=== PATIENT | female | born 1945 | race Caucasian/White ===

== ENCOUNTER 2024-09-04 11:10 | Emergency (ER) | payer MEDICARE, OTHER ==
[~2024-09-04] VITALS: Ht 170.2 cm; Wt 96.2 kg
[~2024-09-04 11:10] MED LIST: ASPI-12 PO; CELE-193 PO; METF-900 PO; SYN0.088T PO
[2024-09-04 11:19] VITALS: BP 178/77; PULSE 77; RESP 18; O2SAT 99
[2024-09-04] MEDS: LIDOcaine 1% W/epiNEPHrine 1:100,000 20ml vial SQ ONE (12:29)
[2024-09-04] MEDS ORDERED: CEPH-585 PO (13:51)
[2024-09-04] MEDS: TETanus/Pertussis (Acell)/Diphther VAC/PF (Tdap-Adult) 0.5ml syringe IMVAC ONE (13:58)
[2024-09-04 14:22] VITALS: TEMP 98.2
== END 2024-09-04 14:24 | disposition home or self-care (01) ==
LOC: ER 11:10
DX: S81.811A Laceration without foreign body, right lower leg, initial encounter (principal); Z91.09 Other allergy status, other than to drugs and biological substances; Z79.82 Long term (current) use of aspirin; W22.09XA Striking against other stationary object, initial encounter; Y93.89 Activity, other specified; Y92.89 Other specified places as the place of occurrence of the external cause; Y99.8 Other external cause status
CPT/HCPCS: 12002; 90715; 99283; A6258; A6402; A6449; G0008; J7030; Z7610; 90471